=== PATIENT | male | born 1995 | race Caucasian/White ===

== ENCOUNTER 2016-10-21 11:00 | Emergency (ER) | payer OTHER ==
[~2016-10-21] VITALS: Ht 182.9 cm; Wt 103.0 kg
[2016-10-21 11:05] VITALS: TEMP 36.9; Ht 182.9 cm; Wt 103.0 kg
[2016-10-21] MEDS ORDERED: OXYCODONE HCL IR 5 MG TAB (IMMEDIATE RELEASE) PO STA (11:17)
--- NOTE | 2016-10-21 11:35 | EMERGENCY ROOM VISIT NOTE ---
History First contact with patient: 11:11 Chief Complaint: KNEEPAIN Stated Complaint: FELL, RT KNEE PAIN History of Present Illness The patient is a 21 year old male who presents to the Emergency Room via private vehicle accompanied by male friend with complaints of "fell, right knee pain". The patient states that last night around 10:30 PM he was walking, and his right knee spontaneously gave out. He notes that he tried to stand up but has extreme pain in the right medial knee. He notes that he woke up, and developed a bruise on the right medial aspect of the anterior knee and rates the pain as an 8/10. He notes that sitting he can put pressure on the knee when he goes to extend or apply valgus stress to the right knee there is pain that he rates extreme. He denies falling injuring any other areas, loss of consciousness, striking his head, right hip pain are right ankle pain. Review of Systems A complete 6-point Review of Systems was discussed with the patient, with pertinent positives and negatives listed in the History of Present Illness. All remaining Review of Systems questions can be considered negative unless otherwise specified. Past Medical/Surgical History Skin problems, right arm fracture with surgical repair. Family History Unremarkable Social History Smoking Status: Current Every Day Smoker Social History: Patient is a construction secretary. Current/Historical Medications Scheduled PRN Oxycodone Ir (Roxicodone Ir), 1-2 TAB PO Q4H PRN for Pain Allergies Coded Allergies: No Known Allergies (Unverified , 10/21/16) Physical Exam Vital Signs Date Time Temp Pulse Resp B/P Pulse Ox O2 Delivery O2 Flow Rate FiO2 10/21/16 12:21 102 18 162/84 96 10/21/16 11:05 36.9 84 18 160/97 99 Room Air Physical Exam VITAL SIGNS - Vital signs and nursing notes were reviewed. Patient is afebrile , hypertensive, non-tachycardic and saturating well on room air 99%. GENERAL -21-year-old male appearing his stated age who is in no acute distress. Communicates well with provider and answers questions appropriately. SKIN - Without rashes. There is a contusion noted to the right medial aspect of the right knee. HEAD - NC/AT. EYES - Sclera anicteric. Palpebral conjunctiva pink and moist with no injection noted. LUNGS - Chest wall symmetric without accessory muscle use, intercostals retractions, or central cyanosis. Normal vesicular breath sounds CTA B/L. No wheezes, rales, or rhonchi appreciated. CARDIAC - RRR with S1/S2. No murmur, rubs, or gallops appreciated. EXTREMITIES - No clubbing or peripheral cyanosis. No pretibial edema present. There is tenderness palpation of the right medial compartment of the right knee. There is tenderness elicited with extension of the right knee and valgus stress. No tenderness with varus stress. No ligamentous laxity appreciated. + 5/5 strength noted in UE/LE bilaterally. Patient is neurovascularly intact in the right lower extremity. There is no tenderness to the right hip, right femur or thigh region or right tibia/fibular region or right ankle. Medical Decision & Procedures ER Provider Diagnostic Interpretation: RIGHT KNEE 3 VIEWS CLINICAL HISTORY: Fall with right knee pain. FINDINGS: AP, crosstable lateral, and sunrise views of the right knee are obtained. No prior studies are available for comparison at the time of dictation. The skeletal structures are well mineralized. No fracture is seen. The joint spaces of the knee are well-maintained. A small joint effusion is identified. Mild soft tissue swelling is present around the knee. IMPRESSION: Mild soft tissue swelling and small joint effusion. No fracture is seen. Electronically signed by: Diego Callahan M.D. 10/21/2016 11:42 AM Dictated Date/Time: 10/21/2016 11:41 AM Medications Administered Medications (Trade) Dose Ordered Sig/Ros Route Start Time Stop Time Status Last Admin Dose Admin Oxycodone HCl (Roxicodone Immediate Rel Tab) 5 mg NOW STAT PO 10/21/16 11:17 10/21/16 11:19 DC 10/21/16 11:31 5 MG Medical Decision Patient was seen and evaluated as above. After obtaining a thorough history and physical examination the patient presents with what appears to be a localized injury to the right knee status post fall yesterday. Radiograph was obtained, no bony abnormality was identified. Results as above. I agree with radiologist findings. There is a small knee effusion noted. There is no evidence of cellulitis or abscess or septic knee upon examination. After radiograph was obtained a small knee effusion is likely secondary to ligamentous injury. This correlates with clinical exam. Patient was educated upon these findings. He was fitted with a knee immobilizer, provided with crutches for support. While here he was given 1 OxyIR, and a short-term prescription for home. He was educated upon management of these findings. He was provided the number to follow-up with orthopedic doctor first thing Sunday by calling the number. He was educated upon worrisome symptoms which to return , had questions prior to discharge, and was discharged home in good condition. In the evaluation and treatment of this patient, the following differential diagnoses were considered: Patellar Fracture, Tibial Plateau Fracture, Distal Femur Fracture, ACL Injury, PCL Injury, Collateral Ligament Injury, Pes Anserine Bursitis, Maisonneuve Fracture. [facility] Monitoring Program Search Results: patient reviewed within database, no issues identified Impression Primary Impression: Knee pain Departure Information Dispostion Home / Self-Care Condition GOOD Prescriptions Oxycodone Ir (Roxicodone Ir) 5 Mg Tab 1-2 TAB PO Q4H Y for Pain, #15 TAB For Initial Treatment Prov: Jorje Amaral PA-C 10/21/16 Referrals No Doctor, Assigned (PCP) Grant Finch M.D. Patient Instructions [facility] Additional Instructions You have been treated in the Emergency Department for Knee Pain. You have received pain medicine in the emergency department which impairs your ability to operate a vehicle. It is illegal for you to drive after receiving these medicines. You have been prescribed Oxy IR to be used for pain control. This is a narcotic medication. You cannot drive or consume alcohol while on this medicine. This medicine should only be used for pain that cannot be controlled with over-the- counter pain medicines. For pain control, you can use the following [id number] medicines (if >12 yo): - Regular strength (325mg/tab) Tylenol (acetaminophen) 2 tabs every 4-6 hours as needed. Do not exceed 12 tablets in a 24 hour period. Avoid taking more than 4 grams (4000 mg) of Tylenol per day. This includes any other sources of acetaminophen you may take on a regular basis. - Regular strength (200 mg/tab) Advil (ibuprofen) 1-2 tabs every 4-6 hours as needed. Do not exceed a dose of 3200 mg per day. If this is a recent injury (<24 hrs), ice can be applied to the area of pain for the first 3 days to help decrease pain and inflammation. Ice massages can be performed by freezing water in a paper cup, peeling back the cup to expose the ice and then massaging over the affected area. You have been provided the number for an Orthopaedic Surgeon. You should call this number as soon as possible to establish a follow-up visit from today's Emergency Department visit. Keep the knee brace in place until cleared by Orthopedics. Use the crutches you have been provided to keep ALL weight off of the knee until weight bearing is tolerable. Return to the Emergency Department if your current symptoms worsen despite treatment course outlined above. Please return to the emergency department with any new/concerning symptoms. Problem Qualifiers Primary Impression: Knee pain Laterality: right Chronicity: acute Qualified Codes: M25.561 - Pain in right knee
--- NOTE | 2016-10-21 11:43 | DIAGNOSTIC IMAGING REPORT ---
RIGHT KNEE 3 VIEWS CLINICAL HISTORY: Fall with right knee pain. FINDINGS: AP, crosstable lateral, and sunrise views of the right knee are obtained. No prior studies are available for comparison at the time of dictation. The skeletal structures are well mineralized. No fracture is seen. The joint spaces of the knee are well-maintained. A small joint effusion is identified. Mild soft tissue swelling is present around the knee. IMPRESSION: Mild soft tissue swelling and small joint effusion. No fracture is seen. Electronically signed by: Diego Callahan M.D. 10/21/2016 11:42 AM Dictated Date/Time: 10/21/2016 11:41 AM
[2016-10-21] MEDS ORDERED: OXYC1TAB3 PO (11:52)
[2016-10-21 12:21] VITALS: BP 162/84; PULSE 102; O2SAT 96
[2016-11-22] MEDS ORDERED: KETO10TA PO (11:00)
[2016-11-22] MEDS ORDERED: OXYC-57 PO (11:00)
== END 2016-10-21 12:26 | disposition home or self-care (01) ==
LOC: C.EDB 11:02 → C.EDD 12:26
DX: M25.561 Pain in right knee (principal); F17.210 Nicotine dependence, cigarettes, uncomplicated; W19.XXXA Unspecified fall, initial encounter

== ENCOUNTER → 2016-11-22 | Day surgery (SDC) | payer OTHER ==
[2016-11-20 07:46] VITALS: Ht 182.9 cm; Wt 102.3 kg
[~2016-11-22] VITALS: Ht 182.9 cm; Wt 102.3 kg
[~2016-11-22] MED LIST: ATROPINE SULFATE 0.1 MG/ML 5ML SYR IV PRN; CEFAZOLIN 2000 MG/60 ML D5W IV SCH; CEFAZOLIN SOD 1 GM VIAL ONE; CEFAZOLIN SOD 1000MG/55 ML D5W IV ONE; DEXAMETHASONE SOD INJ 4 MG/ML VIAL ONE; EpHEDrine SULFATE INJ 50 MG/ML AMP IV PRN; EpINEphrine INJ 1MG/ML AMP 1 MG/ML AMP ONE; FENTANYL CITRATE INJ 50 MCG/1 ML 2 ML VIAL ONE; HYDROmorphone INJ 2 MG/ML SYR/VIAL IV PRN; KETO10TA PO; KETOROLAC TROMETHAMINE 30 MG/ML VIAL ONE; LACTATED RINGER'S 1000ML 1,000 ML IV SCH; LIDOCAINE HCL 1% MPF 2 ML VIAL ONE; LIDOCAINE HCL 2% 2 ML VIAL (20MG/ML) ONE; MIDAZOLAM HCL 1 MG/ML 2ML VIAL ONE; ONDANSETRON INJ 2 MG/ML 2 ML VIAL IV PRN; ONDANSETRON INJ 2 MG/ML 2 ML VIAL ONE; OXYC-57 PO; OXYCODONE/ACETAMINOPHEN 5-325 TAB PO PRN; PHENYLEPHRINE 100MCG/ML 5ML SYR IV PRN; PROPOFOL IV EMULSION 10 MG/ML 20 ML VIAL IV ONE; ROPIVACAINE 0.5% 5 MG/ML 30 ML VIAL ONE; SODIUM CHLORIDE 0.9% 1000ML 1,000 ML IV SCH
--- NOTE | 2016-11-22 07:41 | History & Physical Bridge - SC ---
H&P Re-Evaluation Bridge Note: I have examined the patient, reviewed the History & Physical and in the interval since the performance of the History & Physical I have noted the following changes of clinical significance: No changes noted
--- NOTE | 2016-11-22 11:00 | [facility] Post Operative Brief Note ---
Immediate Operative Summary Operative Date Nov 22, 2016. Pre-Operative Diagnosis Right knee ACL rupture, medial meniscal bucket handle tear Post-Operative Diagnosis Same Procedure(s) Performed Right Knee Arthroscopy, Anterior Cruciate Ligament Reconstruction Hamstring Autograft, Partial Medial Meniscectomy Surgeon Dr. Layne Link Machine Operator Surgeon(s) Rosibel Kumari PA-C Estimated Blood Loss Minimal Findings Right ACL Tear + Bucket-handle medial meniscus tear Specimens None Anesthesia General Complication(s) None Disposition Recovery Room / PACU
--- NOTE | 2016-11-22 11:02 | Discharge Instructions-SurgCtr ---
Discharge Instructions Date of Service Nov 22, 2016. Visit Reason for Visit: Anterior Cruciate Ligament Rupture Discharge Discharge Diagnosis / Problem: right ACL tear, medial meniscus tear Discharge Goals Goal(s): Decrease discomfort, Improve function, Therapeutic intervention Activity Recommendations Activity Limitations: per Instructions/Follow-up section Weightbearing Status: Right weightbearing (as tolerated with brace ) Anesthesia . Post Anesthesia Instructions: If you have had General Anesthesia or IV Sedation: * Do not drive today. * Resume driving when surgeon permits. * Do not make important decisions or sign legal documents today. * Call surgeon for: 1. Temperature elevations greater than 101 degrees F. 2. Uncontrollable pain. 3. Excessive bleeding. 4. Persistent nausea and vomiting. 5. Medication intolerance (nausea, vomiting or rash). * For nausea and vomiting use only clear liquids such as: tea, soda, bouillon until nausea subsides, then gradually increase diet as tolerated. * If you have any concerns or questions, call your surgeon's office. If physician is unavailable and it is an emergency, call 911 or go to the nearest emergency room. . Instructions / Follow-Up Instructions / Follow-Up MEDICATIONS: * Resume previous medications unless instructed otherwise by your surgeon. * Always take pain medication on a full stomach or with food to avoid upset stomach. * Do not drink alcohol or drive while taking narcotics. * Ibuprofen or Tylenol may be taken if narcotic not needed. No ibuprofen while taking toradol SPECIAL CARE INSTRUCTIONS: __ None _x_ Keep extremity elevated and iced x 48 hours; apply ice 20-30 minutes 8-10 times/day. May remove at night. _x_ Crutches __ May discard when able _x_ Brace (remove for therapy exercises) __ 24 hrs/day __ Remove at night x__ Dressing __ Maintain until seen in office, may shower with plastic over site _x_ Remove dressings in 24-48 hours and then may shower _x_ Cover incisions with band-aids after showering _x_ Do not remove steri-strips Call physician if chills or temperature rises above 102 degrees or pain unrelieved by prescribed pain medications. Office [phone] follow up in 2 weeks Diet Recommendations Home Diet: resume previous diet Procedures Procedures Performed: Right Knee Arthroscopy, Anterior Cruciate Ligament Reconstruction Hamstring Autograft, Partial Medial Meniscectomy Pending Studies Studies pending at discharge: no Medical Emergencies . Who to Call and When: Medical Emergencies: If at any time you feel your situation is an emergency, please call 911 immediately. . Non-Emergent Contact Non-Emergency issues call your: Surgeon . . "Provider Documentation" section prepared by Kleber Kumari.
[2016-11-22 11:47] VITALS: TEMP 37.1
[2016-11-22 12:17] VITALS: BP 148/89; PULSE 79; O2SAT 97
--- NOTE | 2016-11-22 12:28 | Anesthesia Progress Nt - [facility] ---
Anesthesia Post Op Note Date & Time Nov 22, 2016 at 12:28 Vital Signs Pain Intensity: 0 Vital Signs Past 12 Hours Date Time Temp Pulse Resp B/P Pulse Ox O2 Delivery O2 Flow Rate FiO2 11/22/16 12:17 79 18 148/89 97 Room Air 11/22/16 11:47 37.1 84 20 162/80 99 Room Air 11/22/16 11:31 71 13 11/22/16 11:31 72 13 94 11/22/16 11:30 150/80 11/22/16 11:29 37.2 Room Air 11/22/16 11:26 87 14 99 11/22/16 11:26 86 14 11/22/16 11:25 152/84 11/22/16 11:21 76 16 11/22/16 11:21 78 16 93 11/22/16 11:20 156/84 11/22/16 11:19 74 10 98 11/22/16 11:19 74 10 11/22/16 11:15 154/85 11/22/16 11:14 84 12 11/22/16 11:14 82 12 99 11/22/16 11:10 149/79 11/22/16 11:09 88 15 11/22/16 11:09 86 15 146/79 100 11/22/16 11:07 161/99 11/22/16 11:06 89/52 11/22/16 11:04 86 19 100 11/22/16 11:04 86 19 11/22/16 11:02 157/91 11/22/16 11:00 154/121 11/22/16 11:00 36.7 82 22 157/91 100 Mask 6 11/22/16 08:59 0 11/22/16 08:58 0 11/22/16 08:55 126/77 11/22/16 08:53 57 11/22/16 08:53 58 13 99 11/22/16 08:50 133/66 11/22/16 08:48 60 12 99 11/22/16 08:48 59 11/22/16 08:47 58 12 99 11/22/16 08:47 57 11/22/16 08:45 126/67 11/22/16 08:42 62 11/22/16 08:42 62 13 99 11/22/16 08:40 136/75 11/22/16 08:37 64 18 100 11/22/16 08:37 61 11/22/16 08:36 147/90 11/22/16 08:32 68 0 98 11/22/16 08:32 66 11/22/16 07:35 37.1 74 16 145/86 97 Room Air Notes Mental Status: alert / awake / arousable, participated in evaluation Pt Amnestic to Procedure: Yes Nausea / Vomiting: adequately controlled Pain: adequately controlled Airway Patency, RR, SpO2: stable & adequate BP & HR: stable & adequate Hydration State: stable & adequate Anesthetic Complications: no major complications apparent
--- NOTE | 2016-11-22 16:26 | OPERATIVE REPORT ---
DATE OF OPERATION: 11/22/2016 SURGEON: Kaushal Layne MD ELECTRIC RAZOR ASSEMBLER: JACQUI Neff PREOPERATIVE DIAGNOSES: 1. Right anterior cruciate ligament tear. 2. Right knee displaced bucket handle medial meniscus tear. POSTOPERATIVE DIAGNOSES: Same. PROCEDURES PERFORMED: 1. Right knee exam under anesthesia. 2. Right knee diagnostic arthroscopy. 3. Right knee arthroscopic ACL reconstruction with 8.5 mm/8.5 mm semitendinosis/crystals autograft. 4. Right knee partial medial meniscectomy. COMPLICATIONS: None. ESTIMATED BLOOD LOSS: Minimal. TOURNIQUET TIME: 77 minutes at 300 mmHg. OPERATIVE INDICATIONS: The patient is a 21-year-old male who initially injured his knee about a year ago. It was sore and swelled up for about 2 weeks and then calmed down. He has had some intermittent episodes of instability on the steps since then. He had a more recent injury where he twisted his knee and had markedly increased pain, discomfort and stiffness in his knee. He was seen in clinic and had a bucket handle medial meniscus tear. MRI was obtained which revealed an ACL tear and bucket handle medial meniscus tear. The patient elected to proceed with operative treatment. He wanted both of these fixed at the same time. OPERATIVE FINDINGS: Examination under anesthesia of the right knee revealed a fairly large knee joint effusion. Range of motion was near full extension to 135+ degrees of flexion. He had a soft endpoint with Narcisa. He had grade 2 pivot. No varus or valgus instability. Andreea's is negative for mechanical symptoms. ARTHROSCOPIC FINDINGS: Arthroscopic findings revealed a large knee effusion. The undersurface of the patella and trochlea were well preserved. In the intercondylar notch, there was a chronic ACL tear. There was nothing on the lateral wall and the tissues had to be regrown there. His ACL was scarred down to the PCL. The PCL was intact. In the medial compartment, there was a large displaced complex bucket handle medial meniscus tear. The articular surfaces were pretty well preserved. In the lateral compartment, the articular surface and meniscus were normal. OPERATIVE PROCEDURE: The patient was taken to the operating room, identified and placed on the operating table in supine position. All contact areas were appropriately padded. IV antibiotics provided by anesthesia team. A general anesthetic was implemented by anesthesia team. An adductor canal block had been provided in the holding area. A right thigh tourniquet was then placed. The right knee was then examined under anesthesia with findings as described above. The right leg was then prepped and draped in usual sterile fashion. The right leg was elevated and exsanguinated with Esmarch and tourniquet was placed at 300 mmHg. A 4 cm incision was made over the pes tendon insertion. Sharp dissection was carried out through the subcutaneous tissues down to the level of the sartorius fascia. The subcutaneous tissues were mobilized circumferentially. An oblique incision was made in the sartorius fascia above the hamstring tendons. The hamstring tendons were then taken sharply off the anterior face of the tibia. Each tendon was isolated and a #2 TiCron whipstitch was placed in the end of each tendon. Each tendon was then harvested with a closed ended tendon stripper. They were taken to the back table and cut to 22 cm in length. The muscle was stripped off the opposite end of the tendon. The similar #2 TiCron whipstitch was placed in the opposite end of the tendon. The tendons were then folded over. Both sides fit to an 8.5 tunnel fairly tightly. The graft was then placed on the graft board until ready for implantation. 10 pounds of tension were applied. During graft preparation, routine right knee arthroscopy was then performed through typical anteromedial and anterolateral portals. Supralateral outflow portal was established for outflow. The remnant ACL was excised. A small notchplasty was performed. The medial meniscus was then reduced. I detached this posteriorly and anteriorly and removed it from the knee joint. I then used the shaver in the ductal punch to trim up the edges. Once this was complete, attention was then drawn to the ACL reconstruction. With the use of the tibial guide set at 50 degrees, a guidewire was placed in the area of the proposed tibial tunnel. It was overdrilled with an 8.5 mm solid reamer. Tunnel was cleaned of all debris. A 7 mm over the top guide was then placed in the anteromedial portal. The knee was maximally flexed. A guidewire was placed in the area of the proposed femoral tunnel. This was overdrilled with a 4.5 Endobutton drill bit. The tunnel length measured 40 mm. A 20 mm closed loop Endobutton was selected. I then reamed the femoral tunnel with an 8.5 acorn reamer for a distance of 30 mm. The tunnel was cleaned of all debris. A graft was then looped over the 20 mm closed loop Endobutton. A Beath pin was then used to pass the graft through the tibial tunnel up into the femoral tunnel and the Endobutton was flipped. The knee was cycled several times. It was brought out into full extension and there was no impingement. Attention was then drawn toward distal fixation. The knee was brought into full extension. The Intrafix tensioner was then used to tension the graft in 20 pounds of tension. The tunnel was then dilated. A small Biocryl Intrafix sheath was placed followed by a 6/8 Biocryl Intrafix screw. The knee was then examined. There was no Narcisa and no pivot. The scope was placed back in the knee and the graft was appropriately tensioned in flexion and extension. The knee was debrided of all extraneous debris. The arthroscopic instruments were then removed from the joint. The portals were closed with 3-0 Prolene suture in a simple interrupted fashion. The knee was injected with 30 mL of 0.5% ropivacaine with epinephrine and 30 mg of Toradol. The tourniquet was then let down for a tourniquet time of 77 minutes. Hemostasis was secured with the use of electrocautery. The wound was once again irrigated. The subcutaneous tissues were then closed with 2-0 Dexon suture in a buried interrupted fashion. Skin was closed with 3-0 Prolene suture in a subcuticular fashion. Leg was then cleaned and dried and a sterile dressing of Xeroform, 4 x 4, sterile cast padding and Ramón bandage followed by a cold pack and knee immobilizer applied. The patient then brought out of general anesthesia and transferred to the recovery room in stable condition. The patient tolerated the procedure well with no complications. All needle and sponge counts were correct at the end of the operation. I attest to the content of the Intraoperative Record and any orders documented therein. Any exceptions are noted below. CARLD
== END | disposition home or self-care (01) ==
LOC: X.SURG 07:16
PROVIDERS: ATTEND Orthopaedic Surgery Sports Medicine
DX: S83.511A Sprain of anterior cruciate ligament of right knee, initial encounter (principal); S83.211A Bucket-handle tear of medial meniscus, current injury, right knee, initial encounter; X58.XXXA Exposure to other specified factors, initial encounter